=== PATIENT | male | born 1955 | race Caucasian/White ===

== ENCOUNTER 2020-01-31 13:22 | Day surgery (SDC) | payer MEDICARE, SELFPAY ==
[2020-01-27 08:20] VITALS: BMI 25.1
[2020-01-31] VITALS (9 sets, daily range): BP systolic 98–148; BP diastolic 62–87; PULSE 51–64; RESP 10–16; TEMP 36.4–36.8; O2SAT 96–99; BMI 25.1
--- NOTE | 2020-01-31 | PATH_ITS ---
[facility] Accession Number: [id number] . 01 Material submitted: . bladder - ANTERIOR BLADDER TUMOR . 01 Clinical history: . SDC . 02 Diagnosis: Anterior Bladder Tumor, Biopsy: Papillary urothelial carcinoma; see cancer case summary. . . CANCER CASE SUMMARY - URINARY BLADDER . Procedure: Biopsy: Tumor site: Anterior wall. Histologic type: Papillary urothelial carcinoma, noninvasive. Histologic grade: Low grade. Muscularis propria presence: No definite muscularis propria identified. Lymphovascular invasion: Not identified. Tumor extension: Noninvasive papillary carcinoma. MRV 02/03/2020 1309 Local . 02 Comment: As part of routine supervisor quality control, Dr. Ocasio has reviewed this case and agrees with the diagnosis of papillary urothelial carcinoma. . 02 Electronically signed: . Wagner Warner MD, PhD, Pathologist NPI- [id number] . 01 Gross description: . The specimen is received in formalin, labeled anterior bladder tumor and consists of three monique-pink fragments of soft tissue, measuring 1.5 x 1.0 x 0.5 cm in aggregate. The specimen is entirely submitted in cassette A1. ([id number]) /[facility] 02/01/2020 1704 Local . 02 Microscopic: . . . 02 Pathologist provided ICD-10: C67.3 . 02 CPT . 228784 Performed at: 01 [facility] [address], [place], [place] [id number] MD Kenn Escobar MD Phone: [phone] Performed at: 02 [facility] [place] [address] [place], [place] [id number] MD Pattie Ocasio MD Phone: [phone]
--- NOTE | 2020-01-31 14:18 | PM.PREOP ---
Pre-operative Note Interval Note History & Physical reviewed/Exam performed by Physician: Yes Changes to H&P: No
[2020-01-31] MEDS: LACTATED RINGERS 1,000 ML 42 ML IV (14:21)
[2020-01-31] MEDS: CEFAZOLIN 2 GM/100 ML FROZ.PIGGY IV (14:48)
--- NOTE | 2020-01-31 15:11 | SUR.OPER ---
Lithotomy on padded OR bed, head on pillow, arms secured on padded arm boards at <90 degrees abduction. Legs secured in padded yellow fins stirrups.
[2020-01-31] MEDS: WATER FOR INJECTION,STERILE 20 ML, mitoMYcin 20 MG INTRAVESIC (15:22)
[2020-01-31] MEDS: BELLADONNA/OPIUM SUPPOSITORIES 1 EACH PR (15:23)
--- NOTE | 2020-01-31 15:30 | P.OP_ITS ---
Operative Date/Time/Diagnoses Date of procedure: 01/31/20 Time of procedure: 15:30 Pre-op diagnosis: Recurrent urothelial carcinoma the bladder Post-op diagnosis: same Procedure & Clinicians Procedure: 1. Cystoscopy and transurethral resection of bladder tumors. 2. Cystoscopy insulation mitomycin-C (20 mg). Same procedure as scheduled: Yes Indications: 1. Recurrent urothelial carcinoma the bladder. Surgeon: Arnulfo Caro Click Yes if Unassisted: Yes Anesthesia Type: General Operative Notes Findings: 1. Urethra-there was an 18-20 Congolese circumferential stricture at approximately the junction of the bulbar and penile urethral segments. It was carefully negotiated with the visual obturator on the resectoscope and effectively dilated. 2. External sphincter-coapted. 3. Prostate the for +cm length with moderate trilobar hyperplasia. Two papillary lesions noted anterior bladder neck/prostate. 4. Bladder-trabeculation with a few cellules and bilateral small, wide-mouth diverticula at each the left and right bladder wall. Previous resection bed appeared well healed. There were 3 irregular areas of raised erythema at the left lateral floor and wall. Specimens were procured from the bladder neck but not from these flaps spreading areas at the left wall. Rather, and these were cautery destroyed. Closure Type: not applicable Specimen(s): other (Bladder neck/anterior prostate urothelial carcinoma.) Applied: catheter (Three way 18 Congolese Machuca catheter.) Estimated Blood Loss (mL): 0 Blood products transfused: none Tourniquet time (min): 0 Procedure in detail: Patient was positioned supine was Mr. general anesthesia. He was then repositioned semi lithotomy and the lower abdomen, genitalia, and perineum were prepped and draped in sterile fashion. The 25 Congolese resectoscope was passed lower urinary tract with the visual obturator with the findings as described above. Careful inspection bladder was then undertaken. Resectoscope was then fitted with the working element and resecting loop. The anterior bladder neck/prostate was then resected, the tissue collected, and submitted to pathology routine gross and microscopic examination. Attention was then turned to the abnormal areas of the left floor lateral wall. These were cautery destroyed in their entirety by gross examination. Hemostasis was excellent. The bladder was then left partially filled and all instrumentati on was removed. An 18 Congolese three-way Machuca catheter was then inserted, the balloon inflated to 10 cc, and then the contents of bladder drain. A catheter plug was placed at the inflow port. 20 mg of mitomycin-C in 20 cc of sterile saline within still in bladder via the catheter with anticipated to our postoperative retention. The patient was then repositioned supine, was awakened, and transferred to [facility] in stable condition. Complications: none Post-operative Condition: stable Disposition: PACU Plan for aftercare: Discharge home
--- NOTE | 2020-01-31 17:16 | SUR.PHASEII ---
Assumed care from Jason. Pt laying on R side with supportive .
[2020-01-31] MEDS: OXYCODONE IR 5 MG TABLET PO (17:25)
--- NOTE | 2020-01-31 18:04 | SUR.PHASEII ---
1730 duggan drained. Leg bag to catheter and catheter to leg bag teaching discussed, how to d/c the catheter d/c'ed as well. Both voiced an understanding. Pt left when ready and left in stable condition. Urine still light pink in color, clear with no clots.
== END 2020-01-31 18:04 | disposition home or self-care (01) ==
PROVIDERS: Referring Provider Specialist; Visit Provider Specialist
PROC: 0TBB8ZZ Excision of Bladder, Via Natural or Artificial Opening Endoscopic (ICD-10-PCS; CPT 52235; principal; 2020-01-31 14:45)
DX: C67.9 Malignant neoplasm of bladder, unspecified (principal)
CPT/HCPCS: 52235; J0690; J2405; J2704; J3010; J9280

== ENCOUNTER → 2020-03-21 10:44 | Outpatient (CLI) | payer MEDICARE, SELFPAY | PROVIDERS: Visit Provider Specialist | DX: C67.8 Malignant neoplasm of overlapping sites of bladder (principal); N39.0 Urinary tract infection, site not specified | CPT/HCPCS: 51720; 81002; 87086; J9030 ==

== ENCOUNTER → 2020-11-24 09:19 | Outpatient (CLI) | payer MEDICARE, SELFPAY ==
[2020-11-24 20:19] LABS: Alanine Aminotransferase 17 IU/L (<50); Albumin 3.9 g/dL (3.5-5.0); Albumin Globulin Ratio 1.3 (1.0-2.8); Alkaline Phosphatase 63 U/L (38-126); Aspartate Aminotransferase 25 IU/L (17-59); BUN Creatinine Ratio 20.4 (6-22); Bilirubin Total 0.6 mg/dL (0.2-1.3); Blood Urea Nitrogen 20 mg/dL (9-20); Calcium 9.4 mg/dL (8.4-10.2); Carbon Dioxide 23 mmol/L (22-32); Chloride 107 mmol/L (98-107); Estimated Glomerular Filt Rate > 60.0 mL/min (>60); Globulin 2.9 g/dL (1.7-4.1); Glucose 116 mg/dL (80-110); HEMOLYSIS < 15 (0-50); Potassium 4.2 mmol/L (3.4-5.1); Sodium 138 mmol/L (137-145); Total Protein 6.8 g/dL (6.3-8.2)
== END ==
PROVIDERS: PCP Family Medicine; Visit Provider Family Medicine
DX: B35.1 Tinea unguium (principal)
CPT/HCPCS: 80053

== ENCOUNTER → 2021-01-18 10:26 | Outpatient (CLI) | payer MEDICARE, SELFPAY ==
[2021-01-18 20:43] LABS: Prostate Specific Antigen 0.942 ng/mL (0.10-4.00)
== END ==
PROVIDERS: PCP Family Medicine; Visit Provider Specialist
DX: N13.8 Other obstructive and reflux uropathy (principal); N40.1 Benign prostatic hyperplasia with lower urinary tract symptoms
CPT/HCPCS: 84153

== ENCOUNTER → 2021-12-07 07:32 | Outpatient (CLI) | payer MEDICARE, SELFPAY ==
[2021-12-07 19:05] LABS: COVID19 - ORCAS (NP or Nasal) Negative (Negative)
== END ==
PROVIDERS: PCP Family Medicine; Visit Provider Family Medicine
DX: Z20.822 Contact with and (suspected) exposure to COVID-19 (principal); Z01.812 Encounter for preprocedural laboratory examination
CPT/HCPCS: C9803; U0003

== ENCOUNTER 2021-12-10 06:33 | Day surgery (SDC) | payer MEDICARE, SELFPAY ==
[2021-11-30 12:24] VITALS: BMI 26.7
[2021-12-10] VITALS (9 sets, daily range): BP systolic 99–144; BP diastolic 66–88; PULSE 53–67; RESP 12–19; TEMP 36.1–36.6; O2SAT 93–98; BMI 26.7
--- NOTE | 2021-12-10 | PATH_ITS ---
[facility] Accession Number: [id number] . 01 Material submitted: . bladder - LEFT BLADDER WALL . 01 Clinical history: . CYSTO . 01 Diagnosis: Left Bladder Wall: Chronic (follicular) cystitis. Negative for neoplasm. MRV 12/14/2021 0952 Local . 01 Comment: As part of routine quality assurance director, Dr. Warner also reviewed this case and agrees with the diagnosis. . 01 Electronically signed: . Maria C Alamo MD, Pathologist NPI- [id number] . 01 Gross description: . LEFT BLADDER WALL: Received in formalin are 2 fragment(s) of monique, soft tissue measuring 0.3 x 0.3 x 0.2 cm to 0.4 x 0.2 x 0.2 cm submitted entirely in 1 cassette(s) /ANGEL 12/10/2021 2306 Local . 01 Pathologist provided ICD-10: Z85.51 . 01 CPT . 691932 Specimen Comment: A courtesy copy of this report has been sent to [phone] Performed at: 01 [facility] [address] [place] [id number] MD Kenn Escobar MD Phone: [phone]
[2021-12-10] MEDS: LACTATED RINGERS 1,000 ML 100 ML IV (06:54)
[2021-12-10] MEDS: CIPROFLOXACIN 400 MG/200 ML PIGGYBACK 200 MG IV (07:06)
--- NOTE | 2021-12-10 07:26 | PM.PREOP ---
Pre-operative Note COVID-19 Criteria for continued procedure: Expected advancement of disease process, Possibility delay results in more complex future surgery or treatment, Deterioration of the patient's condition or overall health, Delay expected to result in less-positive ultimate med/surg outcome and Non-surgical alternatives not available or appropriate per current SOC Interval Note History & Physical reviewed/Exam performed by Physician: Yes Changes to H&P: No
--- NOTE | 2021-12-10 08:11 | SUR.OPER ---
Lithotomy on padded OR bed, head on pillow, arms secured on padded arm boards at <90 degrees abduction. Legs secured in padded yellow fins stirrups.
--- NOTE | 2021-12-10 08:36 | PM.OP.1 ---
Operative Date/Time/Diagnoses Date of procedure: 12/10/21 Time of procedure: 08:20 Pre-op diagnosis: 1. History of bladder cancer Post-op diagnosis: same Procedure & Clinicians Procedure: 1. Cystoscopy/bladder biopsy. 2. Cystoscopy/fulguration-destruction bladder neoplasm (0.5-2 cm). Same procedure as scheduled: No (Informed after patient under anesthetic no mitomycin available.) Indications: 1. History of grade 3/3 urothelial cell carcinoma the bladder. 2. Bladder neoplasm of uncertain behavior. Surgeon: Arnulfo Caro Click Yes if Unassisted: Yes Anesthesia Type: General Operative Notes Findings: 1. Urethra-normal caliber penile and distal bulbar segment. There is an annular, densee, proximally 20 Maltese proximal bulbar stricture negotiated and the fact of dilated with advancement of the resectoscope under direct visualization. 2. External sphincter-coapted. 3. Prostate-4.5 cm length with moderately obstructing trilobar hyperplasia. 4. Bladder-normal ureteral orifices bilaterally. One to 2+ trabeculation. There bilateral, shallow, wide-mouth diverticulum bilaterally. The right diverticulum is [id number] hyperemic without khari neoplasm. The left diverticulum has 2 small, focal areas of raised urothelium. These 2 lesions were cautery destroyed with the button electrode. Slightly anterior and posterior to the left bladder wall diverticulum are 4-5 small areas of suspicious, raised urothelium. This area was cold cup resected followed by fulguration. Closure Type: not applicable Specimen(s): other (Left lateral bladder wall biopsy x2.) Applied: catheter (Twenty Maltese [address] Machuca catheter to gravity drainage.) Estimated Blood Loss (mL): 0 Blood products transfused: none Procedure in detail: The patient was positioned supine was administered general anesthesia. He was then repositioned semi lithotomy the lower abdomen, genitalia groin were then prepped and draped in sterile fashion. The 25 Maltese resectoscope was then passed the lower urinary tract under direct visualization with the findings as described above. Intraoperative photographs were obtained of the right bladder wall diverticulum, the left lateral wall urothelial neoplasms, and the left bladder wall diverticulum. The resectoscope was then fitted with the cold cup biopsy forceps, as described above under findings, 2 [employer] samples were obtained from the left lateral bladder wall encompassing the suspicious lesions. The samples were each submitted to pathology for routine gross and microscopic examination. Next, the working element was fitted to the resectoscope and a button electrode was used to cauterize the biopsy site and perimeter. It was also used additionally to cautery destroyed additional peripheral lesion x2 and 2 lesions within the left lateral bladder wall diverticulum. The bladder was then left partially filled and the resectoscope was removed. A 20 Maltese Machuca catheter was then passed lower urinary track the balloon filled to 10 cc and then placed to gravity drainage. The patient was then awakened, transferred to [facility], and transported to PACU awake and stable. Complications: none Post-operative Condition: stable Disposition: PACU Plan for aftercare: Discharge home.
[2021-12-10] MEDS: LACTATED RINGERS 1,000 ML 120 ML IV (08:45)
--- NOTE | 2021-12-10 09:14 | SUR.PHASEII ---
0858 SBAR report from Rickey AKHTAR.
[2021-12-10] MEDS: OXYCODONE IR 5 MG TABLET PO (10:01)
[2021-12-10] MEDS: ACETAMINOPHEN 325 MG TABLET 975 MG PO (10:01)
== END 2021-12-10 10:10 | disposition home or self-care (01) ==
PROVIDERS: PCP Family Medicine; Referring Provider Specialist; Visit Provider Specialist
PROC: 3E1K78Z Irrigation of Genitourinary Tract using Irrigating Substance, Via Natural or Artificial Opening (ICD-10-PCS; CPT 51700; principal; 2021-12-10 07:45)
DX: N30.20 Other chronic cystitis without hematuria (principal); D41.4 Neoplasm of uncertain behavior of bladder; N32.89 Other specified disorders of bladder; N32.3 Diverticulum of bladder; Z85.51 Personal history of malignant neoplasm of bladder; N40.1 Benign prostatic hyperplasia with lower urinary tract symptoms; N13.8 Other obstructive and reflux uropathy; Z86.718 Personal history of other venous thrombosis and embolism; Z87.891 Personal history of nicotine dependence; Z85.828 Personal history of other malignant neoplasm of skin
CPT/HCPCS: 52234; J0744; J1100; J2405; J2704; J3010